=== PATIENT | male | born 1975 | race African-American/Black ===

== ENCOUNTER 2020-02-11 17:02 | Emergency (ER) | payer MEDICAID ==
[~2020-02-11] VITALS: Ht 188 cm; Wt 73.0 kg
[2020-02-11] MEDS ORDERED: SODIUM CHLORIDE 0.9% 1,000 ML IV ONE (17:13)
[2020-02-11] MEDS ORDERED: LEVETIRACETAM 1000MG/100ML 100 ML IV ONE (17:15)
[2020-02-11 18:48] LABS: BASOPHILS % 1.5 % (0.0-2.0); EOSINOPHILS % 1.4 % (0.0-5.0); HEMATOCRIT. 39.3 % (42.0-52.0); HEMOGLOBIN. 13.2 g/dL (14.0-18.0); LYMPHOCYTES % 26.4 % (20.0-50.0); MEAN CORPUSCULAR HEMOGLOBIN 26.7 pg (28.0-32.0); MEAN CORPUSCULAR VOLUME 79.8 fL (80.0-94.0); MEAN PLATELET VOLUME 9.7 fl (7.4-10.4); MONOCYTES % 6.1 % (2.0-8.0); NEUTROPHILS % 64.6 % (40.0-76.0); PLATELET 239 x1000/uL (130-400); RED BLOOD CELL COUNT 4.92 mill/uL (4.7-6.1); RED CELL DISTRIBUTION WIDTH 17.5 % (11.6-14.6)
[2020-02-11 18:54] LABS: CHLORIDE 105 mEq/L (98-107)
[2020-02-11 18:58] LABS: ETHANOL BLOOD < 10 mg/dL
[2020-02-11 19:12] LABS: CARBAMAZEPINE < 0.5 ug/mL (4-12); VALPROIC ACID < 3.0 ug/mL (50-100)
[2020-02-11 20:30] VITALS: BP 118/71
== END 2020-02-11 20:32 | disposition home or self-care (01) ==
LOC: ER 17:02
DX: R56.9 Unspecified convulsions (principal)
CPT/HCPCS: 36415; 80053; 80156; 80165; 80185; 80320; 85025; 96365; 99284; J1953; J7030; G0480